=== PATIENT | female | born 1985 | race Asian ===

== ENCOUNTER 2018-06-02 19:26 | Emergency (ER) | payer MEDICAID ==
[~2018-06-02] VITALS: Ht 157.5 cm; Wt 59.0 kg
[2018-06-02 22:05] LABS: EOSINOPHILS % 0.9 % (0.0-5.0); HEMATOCRIT. 45.2 % (36.0-48.0); HEMOGLOBIN. 15.3 g/dL (12.0-16.0); LYMPHOCYTES % 25.9 % (20.0-50.0); MEAN CORPUSCULAR HEMOGLOBIN 30.5 pg (28.0-32.0); MEAN CORPUSCULAR VOLUME 89.7 fL (81.0-99.0); MEAN PLATELET VOLUME 7.5 fl (7.4-10.4); MONOCYTES % 7.7 % (2.0-8.0); NEUTROPHILS % 64.5 % (40.0-76.0); PLATELET 437 x1000/uL (130-400); RED BLOOD CELL COUNT 5.03 mill/uL (4.2-5.4); RED CELL DISTRIBUTION WIDTH 13.2 % (11.6-14.6)
[2018-06-02] MEDS ORDERED: ABIL10 PO (22:10)
[2018-06-02 22:12] LABS: CHLORIDE 103 mEq/L (98-107)
[2018-06-02 22:13] LABS: HCG SCREEN NEGATIVE
[2018-06-02] MEDS ORDERED: OLAN10TA3 PO (22:13)
[2018-06-02 22:21] LABS: ETHANOL BLOOD < 10 mg/dL
[2018-06-03] MEDS ORDERED: OLANZAPINE 10MG TABLET PO ONE (02:00)
[2018-06-03] MEDS ORDERED: ARIPIPRAZOLE 10MG TABLET PO ONE (09:00)
[2018-06-03] MEDS ORDERED: OLANZAPINE 10MG TABLET PO SCH (17:00)
[2018-06-03 19:54] VITALS: BP 125/75
== END 2018-06-03 19:56 | disposition home or self-care (01) ==
LOC: ER 19:26
DX: F23 Brief psychotic disorder (principal); F31.9 Bipolar disorder, unspecified
CPT/HCPCS: 36415; 84703; 99285